=== PATIENT | male | born 1965 | race Caucasian/White ===

== ENCOUNTER 2017-02-14 10:03 | Emergency (ER) | payer OTHER ==
[~2017-02-14] VITALS: Ht 190.5 cm; Wt 130.0 kg
[~2017-02-14 10:03] MED LIST: HYDR10SO PO; LISI-360 PO; MEDR4PAK3 PO; METO25CR PO; ROPI1TAB72 PO; [UNRECOGNIZED DRUG - CODE] PO
--- NOTE | 2017-02-14 10:39 | PD ---
HPI Chief Complaint: Flank/Kidney Pain Time Seen by Provider: 10:39 Travel History International Travel<30 days: No Contact w/Intl Traveler<30days: No Traveled to known affect area: No History of Present Illness HPI 51-year-old male came to the emergency room with history of left flank pain that started 5 days ago. Patient says he has history of kidney stones and has had surgery for it last . He has been nauseous and vomiting. He went to see his urologist but patient says he does not trust him and hence came to this emergency room. Patient had an ultrasound done 2 weeks ago when he was told his kidneys had some stones. He feels dehydrated he said. Patient is tachycardic in the ER. [facility] Past Medical History Narrative Medical List of his past medical, surgical, social and family history is reviewed from the nursing note. Arthritis: Yes Blood Disorders: No Anxiety: No Depression: Yes Heart Rhythm Problems: Yes (FAST PULSE) Cancer: No Cardiac Catheterization: Yes Cardiovascular Problems: Yes (HTN) High Cholesterol: No Chest Pain: Yes Congestive Heart Failure: No Diabetes: No Diminished Hearing: Yes (LEFT EAR DEAFNESS) Endocrine: No Gastrointestinal Disorders: No Genitourinary: No Headaches: Yes Hypertension: Yes Immune Disorder: No Musculoskeletal: Yes (CHRONIC BACK PAIN) Neurologic: Yes (head injury at age 20) Psychiatric: No Reproductive: No Respiratory: No Immunizations Current: Yes Myocardial Infarction: No ?: Not Past Surgical History Abdominal Surgery: Yes (APPY) Appendectomy: Yes Cholecystectomy: Yes Coronary Artery Bypass Graft: No Other Surgery: Yes Social History Alcohol Use: No Tobacco Use: No Substance Use: No Allergies-Medications (Allergen,Severity, Reaction): Coded Allergies: No Known Allergies (Verified , 02/14/17) Comments No known drug allergies. Reported Meds & Prescriptions Reported Meds & Active Scripts Active Zofran Odt (Ondansetron Odt) 4 Mg Tab 4 Mg SL Q6HR PRN Macrobid (Nitrofurantoin Monoh/Nitrofur Macro) 100 Mg Cap 100 Mg PO BID 10 Days Reported Pyridium (Phenazopyridine HCl) 100 Mg Tab 100 Mg PO Q8H PRN Requip (Ropinirole) 1 Mg Tab 1 Mg PO HS Hydrocodone-Acetaminophen 10-325 mg Tab 1 Tab PO Q4H PRN Metoprolol Succinate ER 24 HR (Metoprolol Succinate) 25 Mg Tab 25 Mg PO HS Lisinopril 10 Mg Tab 10 Mg PO BID Narrative Medication List of his home medications reviewed from the nursing note. Review of Systems Except as stated in HPI: all other systems reviewed are Neg Physical Exam Narrative GENERAL: Awake, alert, obese, moderate distress SKIN: Focused skin assessment warm/dry. HEAD: Atraumatic. Normocephalic. EYES: Pupils equal and round. No scleral icterus. No injection or drainage. ENT: No nasal bleeding or discharge. Mucous membranes NECK: Trachea midline. No JVD. CARDIOVASCULAR: Regular rate and rhythm. No murmur appreciated. RESPIRATORY: No accessory muscle use. Clear to auscultation. Breath sounds equal bilaterally. GASTROINTESTINAL: Abdomen soft, non-tender, nondistended. Hepatic and splenic margins not palpable. MUSCULOSKELETAL: No obvious deformities. No clubbing. No cyanosis. No edema. Left CVA tenderness NEUROLOGICAL: Awake and alert. No obvious cranial nerve deficits. Motor grossly within normal limits. Normal speech. PSYCHIATRIC: Appropriate mood and affect; insight and judgment normal. Data Data Last Documented VS Vital Signs Date Time Temp Pulse Resp B/P Pulse Ox O2 Delivery O2 Flow Rate FiO2 02/14/17 13:54 82 16 122/81 98 Room Air 02/14/17 10:44 98.3 Orders Complete Blood Count With Diff (02/14/17 10:44) Basic Metabolic Panel (Bmp) (02/14/17 10:44) Urinalysis - C+S If Indicated (02/14/17 10:44) Ct Abd/Pel W/O Iv Contrast (02/14/17 10:44) Ecg Monitoring (02/14/17 10:44) Iv Access Insert/Monitor (02/14/17 10:44) Morphine Inj (Morphine Inj) (02/14/17 10:45) Sodium Chloride 0.9% Flush (Ns Flush) (02/14/17 10:45) Sodium Chlor 0.9% 1000 Ml Inj (Ns 1000 M (02/14/17 10:44) Hydromorphone Pf Inj (Dilaudid Pf Inj) (02/14/17 10:45) Ondansetron Inj (Zofran Inj) (02/14/17 11:30) Urine Culture (02/14/17 11:20) Ceftriaxone Inj (Rocephin Inj) (02/14/17 12:00) Nitrofurantoin Monohyd Macrocr (Macrobid (02/14/17 12:00) Blood Culture (02/14/17 11:57) Sodium Chlor 0.9% 1000 Ml Inj (Ns 1000 M (02/14/17 12:00) Labs Laboratory Tests Test 02/14/17 11:20 White Blood Count 12.1 TH/MM3 Red Blood Count 5.72 MIL/MM3 Hemoglobin 16.4 GM/DL Hematocrit 49.0 % Mean Corpuscular Volume 85.7 FL Mean Corpuscular Hemoglobin 28.6 PG Mean Corpuscular Hemoglobin 33.4 % Concent Red Cell Distribution Width 14.2 % Platelet Count 310 TH/MM3 Mean Platelet Volume 8.1 FL Neutrophils (%) (Auto) 64.4 % Lymphocytes (%) (Auto) 24.5 % Monocytes (%) (Auto) 8.7 % Eosinophils (%) (Auto) 2.0 % Basophils (%) (Auto) 0.4 % Neutrophils # (Auto) 7.8 TH/MM3 Lymphocytes # (Auto) 3.0 TH/MM3 Monocytes # (Auto) 1.1 TH/MM3 Eosinophils # (Auto) 0.2 TH/MM3 Basophils # (Auto) 0.0 TH/MM3 CBC Comment DIFF FINAL Differential Comment Urine Color ORANGE Urine Turbidity CLEAR Urine pH 5.5 Urine Specific [place] 1.046 Urine Protein 30 mg/dL Urine Glucose (UA) NEG mg/dL Urine Ketones NEG mg/dL Urine Occult Blood NEG Urine Nitrite POS Urine Bilirubin NEG Urine Urobilinogen 4.0 MG/DL Urine Leukocyte Esterase NEG Urine RBC 1 /hpf Urine WBC 1 /hpf Urine Squamous Epithelial 1 /hpf Cells Urine Bacteria RARE /hpf Urine Mucus MANY /lpf Microscopic Urinalysis Comment CULTURE INDICATED Sodium Level 136 MEQ/L Potassium Level 4.0 MEQ/L Chloride Level 102 MEQ/L Carbon Dioxide Level 24.9 MEQ/L Anion Gap 9 MEQ/L Blood Urea Nitrogen 19 MG/DL Creatinine 1.08 MG/DL Estimat Glomerular Filtration 73 ML/MIN Rate Random Glucose 107 MG/DL Calcium Level 10.3 MG/DL [facility] Medical Decision Making Medical Screen Exam Complete: Yes Emergency Medical Condition: Yes Medical Record Reviewed: Yes Differential Diagnosis Ureteral colic, pyelonephritis, chronic back pain Narrative Course 10:52 AM awaiting for the blood test results and CAT scan to be done and resulted. He was medicated for pain and IV fluid bolus. 11:53 AM blood test result is back and the slight leukocytosis. However CAT scan report came back and there is no ureteral stone or any other etiology that the radiologist can see and pain. Awaiting for the chemistry and UA to be resulted. 12 PM UA and chemistry is back. UA was relatively acceptable to be within normal limits. However shows UTI. I've ordered 1 g of IV Rocephin and by mouth Macrobid. Patient however will be discharged after that one by mouth Macrobid prescription. Procedures EKG Prior to Arrival: No Diagnosis Primary Impression: Pyelonephritis Referrals: Primary Care Physician 3 days Additional Instructions: Please return to the ER if the condition worsens or any other new concerns. Otherwise take the antibiotic as per the prescription direction. Follow up with your primary care in couple days. Med/Other Pt SpecificInfo: Prescription(s) given Scripts Ondansetron Odt (Zofran Odt)4 Mg Tab4 Mg SL Q6HR PRN (Nausea/Vomiting) #12 TAB Ref 0 Prov:Jg Marc MD 02/14/17 Nitrofurantoin Monohydrate Macrocrystals (Macrobid)100 Mg [id number] Mg PO BID 10 Days Ref 0 Prov:Jg Marc MD 02/14/17 Disposition: 01 DISCHARGE HOME Condition: Stable Jg Marc MD February 14, 2017 10:39
[2017-02-14 10:44] VITALS: BP 110/82; PULSE 116; RESP 16; TEMP 98.3; O2SAT 98
[2017-02-14] MEDS ORDERED: SODIUM CHLOR 0.9% 1000 ML INJ 1,000 ML IV ONE ×2 (10:44→12:00)
[2017-02-14] MEDS ORDERED: HYDROmorphone HCL PF 1 MG/ML VIAL IVS ONE (10:45)
[2017-02-14] MEDS ORDERED: MORPHINE SULFATE 4 MG/ML INJ IV ONE (10:45)
[2017-02-14] MEDS ORDERED: SODIUM CHLORIDE 0.9% FLUSH 10 ML FLUSH IVF PRN (10:45)
[2017-02-14] MEDS ORDERED: LISI10TA3 PO (11:16)
[2017-02-14] MEDS ORDERED: METO25TA6 PO (11:16)
[2017-02-14] MEDS ORDERED: ROPI1TAB72 PO (11:16)
[2017-02-14] MEDS ORDERED: PHEN0.4T PO (11:16)
[2017-02-14] MEDS ORDERED: HYDR-3583 PO (11:16)
[2017-02-14] MEDS ORDERED: ONDANSETRON HCL 4 MG/2 ML VIAL IV PUSH ONE (11:30)
[2017-02-14 11:35] LABS: AUTOMATED NEUTROPHIL # 7.8 TH/MM3 (1.8-7.7); BASOPHIL % 0.4 % (0.0-2.0); EOSINOPHIL # 0.2 TH/MM3 (0-0.4); HEMO FLAGS DIFF FINAL; LYMPH % 24.5 % (9.0-44.0); MEAN CELL VOLUME 85.7 FL (80.0-100.0); MEAN CORPUSCULAR HEMOGLOBIN 28.6 PG (27.0-34.0); MEAN CORPUSCULAR HGB CONC 33.4 % (32.0-36.0); MONO % 8.7 % (0.0-8.0); NEUT % 64.4 % (16.0-70.0); PLATELET COUNT 310 TH/MM3 (150-450); RED BLOOD COUNT 5.72 MIL/MM3 (4.50-5.90); RED CELL DISTRIBUTION WIDTH 14.2 % (11.6-17.2); WHITE BLOOD COUNT 12.1 TH/MM3 (4.0-11.0)
--- NOTE | 2017-02-14 11:52 | RADRPT ---
EXAM DATE/TIME: 02/14/2017 11:35 [place] COMPARISON: No previous studies available for comparison. INDICATIONS : Left flank pain that started 5 days ago. Evaluate for renal stone. ORAL CONTRAST: No oral contrast ingested. RADIATION DOSE: 8.56 CTDIvol (mGy) MEDICAL HISTORY : Cardiovascular disease. Hypertension. SURGICAL HISTORY : Cholecystectomy. Appendectomy ENCOUNTER: Initial ACUITY: 4 - 6 days PAIN SCALE: 6/10 LOCATION: Left flank TECHNIQUE: Volumetric scanning of the abdomen and pelvis was performed. Using automated exposure control and ad justment of the mA and/or kV according to patient size, radiation dose was kept as low as reasonably achievable to obtain optimal diagnostic quality images. FINDINGS: The lung base is are clear. There is no pericardial effusion. There is moderate fatty replacement to the liver. Granulomas are present in the spleen. The pancreas and adrenal glands are unremarkable. Right kidney: There is no evidence renal calculi or obstruction. Left kidney: There is very mild prominence to the left ureter without calcification. Pelvic contents are unremarkable. There is no ascites or adenopathy. There are no diverticulitis Review of bone windows reveals only degenerative changes. CONCLUSION: 1. Negative for renal stone or obstruction. 2. I do not see an etiology for patient's flank pain. 3. Moderate fatty replacement of the liver. Rakesh Hays MD FACR on February 14, 2017 at 11:47 Board Certified Radiologist. This report was verified electronically.
[2017-02-14 11:53] LABS: BACTERIA, URINE RARE /hpf; BLOOD, URINE NEG (NEG); COMMENT (UR) CULTURE INDICATED; CULTURE IF INDICATED CULTURE INDICATED; GLUCOSE,URINE NEG (NEG); KETONE, URINE NEG (NEG); MUCUS URINE MANY /lpf (OCC); NITRITE,URINE POS (NEG); PH, URINE 5.5 (5.0-8.5); SQUAMOUS EPITHELIAL CELL URINE 1 /hpf (0-5); URINE COLOR ORANGE (YELLW/STRAW)
[2017-02-14 11:57] LABS: BICARBONATE 24.9 MEQ/L (21.0-32.0)
[2017-02-14] MEDS ORDERED: cefTRIAXone INJ 1,000 MG in SODIUM CHLORIDE 0.9% INJ 100 ML IV ONE (12:00)
[2017-02-14] MEDS ORDERED: NITROFURANTOIN MONOHYD MACROCR 100 MG CAP PO ONE (12:00)
[2017-02-14] MEDS ORDERED: ZOFR4TAB3 SL (12:03)
[2017-02-14] MEDS ORDERED: MACR100C2 PO (12:03)
[2017-02-14 13:54] VITALS: BP 122/81; PULSE 82; RESP 16; O2SAT 98
== END 2017-02-14 13:55 | disposition home or self-care (01) ==
LOC: NEPD 10:03
DX: N12 Tubulo-interstitial nephritis, not specified as acute or chronic (principal); B96.89 Other specified bacterial agents as the cause of diseases classified elsewhere; I10 Essential (primary) hypertension; H91.92 Unspecified hearing loss, left ear
CPT/HCPCS: 74176; 80048; 81001; 85025; 87040; 87086; 96361; 96365; 96375; 99284; J0696; J1170; J2270; J2405; J7030

== ENCOUNTER 2017-04-09 10:10 | Emergency (ER) | payer OTHER ==
[~2017-04-09] VITALS: Ht 190.5 cm; Wt 128.0 kg
[~2017-04-09 10:10] MED LIST changes: +HYDR-3583 PO; -HYDR10SO PO; -LISI-360 PO; +LISI10TA3 PO; +MACR100C2 PO; -MEDR4PAK3 PO; -METO25CR PO; +METO25TA6 PO; +PHEN0.4T PO; +ZOFR4TAB3 SL; -[UNRECOGNIZED DRUG - CODE] PO
[2017-04-09 10:12] VITALS: BP 127/88; PULSE 100; RESP 24; TEMP 98; O2SAT 92
[2017-04-09 10:44] VITALS: BP 132/95; PULSE 104; RESP 17; O2SAT 94
[2017-04-09] MEDS ORDERED: AMIT150T PO (10:49)
[2017-04-09] MEDS ORDERED: HYDR-3288 PO (10:49)
[2017-04-09] MEDS ORDERED: MORPHINE SULFATE 8 MG/ML INJ IV PUSH ONE (11:00)
[2017-04-09] MEDS ORDERED: KETOROLAC TROMETHAMINE 30 MG/ML (IVP) VIAL IVP ONE (11:00)
[2017-04-09] MEDS ORDERED: SODIUM CHLORIDE 0.9% FLUSH 10 ML FLUSH IV FLUSH PRN (11:00)
[2017-04-09] MEDS ORDERED: ONDANSETRON HCL 4 MG/2 ML VIAL IVP ONE (11:00)
[2017-04-09 11:38] LABS: BLOOD, URINE TRACE (NEG); GLUCOSE,URINE NEG (NEG); GRANULAR CAST, URINE 1 /lpf; HYALINE CAST, URINE 5 /lpf (RARE); KETONE, URINE NEG (NEG); MUCUS URINE FEW /lpf (OCC); NITRITE,URINE NEG (NEG); PH, URINE 5.5 (5.0-8.5); URINE COLOR YELLOW (YELLW/STRAW)
[2017-04-09 11:40] LABS: AUTOMATED NEUTROPHIL # 5.9 TH/MM3 (1.8-7.7); BASOPHIL # 0.1 TH/MM3 (0-0.2); BASOPHIL % 0.7 % (0.0-2.0); EOSINOPHIL # 0.2 TH/MM3 (0-0.4); EOSINOPHIL % 2.3 % (0.0-4.0); HEMATOCRIT 50.8 % (39.0-51.0); HEMO FLAGS DIFF FINAL; LYMPH % 27.5 % (9.0-44.0); LYMPHOCYTE # 2.7 TH/MM3 (1.0-4.8); MEAN CELL VOLUME 85.9 FL (80.0-100.0); MEAN CORPUSCULAR HEMOGLOBIN 29.5 PG (27.0-34.0); MEAN CORPUSCULAR HGB CONC 34.3 % (32.0-36.0); MONO % 7.9 % (0.0-8.0); NEUT % 61.6 % (16.0-70.0); PLATELET COUNT 353 TH/MM3 (150-450); RED BLOOD COUNT 5.91 MIL/MM3 (4.50-5.90); RED CELL DISTRIBUTION WIDTH 14.1 % (11.6-17.2); WHITE BLOOD COUNT 9.6 TH/MM3 (4.0-11.0)
[2017-04-09 11:41] LABS: COMMENT (UR) CULT NOT INDICATED; CULTURE IF INDICATED CULT NOT INDICATED
[2017-04-09 11:56] VITALS: BP 121/85; PULSE 105; RESP 16; O2SAT 96
[2017-04-09 12:42] LABS: BICARBONATE 26.9 MEQ/L (21.0-32.0); POTASSIUM 4.3 MEQ/L (3.5-5.1)
--- NOTE | 2017-04-09 12:47 | PD ---
HPI Chief Complaint: Flank/Kidney Pain Time Seen by Provider: 10:52 Travel History International Travel<30 days: No Contact w/Intl Traveler<30days: No Traveled to known affect area: No History of Present Illness HPI Patient's 51 years old and arrives with flank pain primarily on the left side. He's had fever and chills for the last few days. Diaphoresis reported. He reports a sono was performed recently revealing stones in the left kidney. He has a long history of nephroureterolithiasis. He followed with Dr. Poole of urology until a disagreement of late apparently and he now follows with Dr. Yuan. Nausea reported. PFSH Past Medical History Arthritis: Yes Asthma: Yes Blood Disorders: No Anxiety: No Depression: Yes Heart Rhythm Problems: Yes (tachy) Cancer: No Cardiac Catheterization: Yes Cardiovascular Problems: Yes (HTN ) High Cholesterol: No Chest Pain: Yes Congestive Heart Failure: No Diabetes: No Diminished Hearing: Yes (LEFT EAR DEAFNESS) Endocrine: No Gastrointestinal Disorders: No Genitourinary: No Headaches: Yes Hypertension: Yes Immune Disorder: No Musculoskeletal: Yes (CHRONIC BACK PAIN) Neurologic: Yes (head injury at age 20 L FACIAL paralysis with cardiac arrest x 2) Psychiatric: No Reproductive: No Respiratory: Yes (ASTHMA ) Immunizations Current: Yes Myocardial Infarction: No Past Surgical History Abdominal Surgery: Yes (APPY) Appendectomy: Yes Cholecystectomy: Yes Coronary Artery Bypass Graft: No Other Surgery: Yes Family History Family Myocardial Infarction: Yes (FATHER, MOTHER) Social History Alcohol Use: No Tobacco Use: No Substance Use: No Allergies-Medications (Allergen,Severity, Reaction): Coded Allergies: No Known Allergies (Verified , 04/09/17) Reported Meds & Prescriptions Reported Meds & Active Scripts Active Percocet (Oxycodone-Acetaminophen) 7.5-325 mg Tab 1 Tab PO BID PRN Reported Amitriptyline (Amitriptyline HCl) 150 Mg Tab 150 Mg PO HS [place] (Hydrocodone-Acetaminophen) 7.5-325 mg Tab 1 Tab PO Q6HR PRN Requip (Ropinirole) 1 Mg Tab 1 Mg PO HS Metoprolol Succinate ER 24 HR (Metoprolol Succinate) 25 Mg Tab 25 Mg PO HS Lisinopril 10 Mg Tab 10 Mg PO BID Review of Systems Except as stated in HPI: all other systems reviewed are Neg Physical Exam Narrative GENERAL: 51-year-old male well-nourished well-developed no acute distress SKIN: Focused skin assessment warm/dry. HEAD: Atraumatic. Normocephalic. EYES: Pupils equal and round. No scleral icterus. No injection or drainage. ENT: No nasal bleeding or discharge. Mucous membranes pink and moist. NECK: Trachea midline. No JVD. CARDIOVASCULAR: Regular rate and rhythm. No murmur appreciated. RESPIRATORY: No accessory muscle use. Clear to auscultation. Breath sounds equal bilaterally. GASTROINTESTINAL: Soft. Minimal tenderness percussion left flank. MUSCULOSKELETAL: No obvious deformities. No clubbing. No cyanosis. No edema. NEUROLOGICAL: Awake and alert. No obvious cranial nerve deficits. Motor grossly within normal limits. Normal speech. PSYCHIATRIC: Appropriate mood and affect; insight and judgment normal. Data Data Last Documented VS Vital Signs Date Time Temp Pulse Resp B/P Pulse Ox O2 Delivery O2 Flow Rate FiO2 04/09/17 11:56 105 16 121/85 96 Room Air 04/09/17 10:12 98.0 Vital signs reviewed Orders Basic Metabolic Panel (Bmp) (04/09/17 10:52) Complete Blood Count With Diff (04/09/17 10:52) Urinalysis - C+S If Indicated (04/09/17 10:52) Iv Access Insert/Monitor (04/09/17 10:52) Ecg Monitoring (04/09/17 10:52) Oximetry (04/09/17 10:52) Ondansetron Inj (Zofran Inj) (04/09/17 11:00) Sodium Chloride 0.9% Flush (Ns Flush) (04/09/17 11:00) Ketorolac Inj (Toradol Inj) (04/09/17 11:00) Morphine Inj (Morphine Inj) (04/09/17 11:00) Labs Laboratory Tests Test 04/09/17 04/09/17 04/09/17 11:18 11:22 12:05 Urine Color YELLOW Urine Turbidity CLEAR Urine pH 5.5 Urine Specific [place] 1.033 Urine Protein TRACE mg/dL Urine Glucose (UA) NEG mg/dL Urine Ketones NEG mg/dL Urine Occult Blood TRACE Urine Nitrite NEG Urine Bilirubin NEG Urine Urobilinogen LESS THAN 2.0 MG/DL Urine Leukocyte Esterase NEG Urine RBC 1 /hpf Urine WBC 1 /hpf Urine Hyaline Casts 5 /lpf Urine Granular Casts 1 /lpf Urine Mucus FEW /lpf Microscopic Urinalysis Comment CULT NOT INDICATED White Blood Count 9.6 TH/MM3 Red Blood Count 5.91 MIL/MM3 Hemoglobin 17.4 GM/DL Hematocrit 50.8 % Mean Corpuscular Volume 85.9 FL Mean Corpuscular Hemoglobin 29.5 PG Mean Corpuscular Hemoglobin 34.3 % Concent Red Cell Distribution Width 14.1 % Platelet Count 353 TH/MM3 Mean Platelet Volume 8.3 FL Neutrophils (%) (Auto) 61.6 % Lymphocytes (%) (Auto) 27.5 % Monocytes (%) (Auto) 7.9 % Eosinophils (%) (Auto) 2.3 % Basophils (%) (Auto) 0.7 % Neutrophils # (Auto) 5.9 TH/MM3 Lymphocytes # (Auto) 2.7 TH/MM3 Monocytes # (Auto) 0.8 TH/MM3 Eosinophils # (Auto) 0.2 TH/MM3 Basophils # (Auto) 0.1 TH/MM3 CBC Comment DIFF FINAL Differential Comment Sodium Level 136 MEQ/L Potassium Level 4.3 MEQ/L Chloride Level 103 MEQ/L Carbon Dioxide Level 26.9 MEQ/L Anion Gap 6 MEQ/L Blood Urea Nitrogen 13 MG/DL Creatinine 0.91 MG/DL Estimat Glomerular Filtration 89 ML/MIN Rate Random Glucose 103 MG/DL Calcium Level 9.3 MG/DL [facility] Medical Decision Making Medical Screen Exam Complete: Yes Emergency Medical Condition: Yes Medical Record Reviewed: Yes Differential Diagnosis Constipation, Gastritis, Acute Cholecystitis, Biliary Colic, Pancreatitis, LEPE , Hepatitis, Bowel Obstruction, Cystitis, Mesenteric Ischemia, AAA, Appendicitis , Renal Stone/Hydronephrosis, GERD, perforated viscous Narrative Course CBC & BMP Diagram 04/09/17 11:22 04/09/17 12:05 Urinalysis: no UTI, 1 RBC Long conversation with patient regarding pain control and differential diagnosis. Pt has been drinking sweet tea in excess lately. He was encouraged to switch to water, a concept to which he was responded favorably. Follow up with Dr Yuan. Diagnosis Primary Impression: Hematuria Additional Impression: Flank pain Referrals: Julio Yuan MD 2 days Additional Instructions: You have a choice when it comes to health care, and we are glad that you chose [facility]. Hopefully, we have met your expectations on today's visit. You are welcome to return to [facility] at any time, as we are committed to meeting the health care needs of our community. DRINK WATER. DRINK UNSWEETENED TEA! Med/Other Pt SpecificInfo: Prescription(s) given Scripts Oxycodone-Acetaminophen (Percocet)7.5-325 mg Tab1 Tab PO BID PRN (PAIN SCALE 6 TO 10) #28 TAB Ref 0 Prov:Mohamud Cunningham MD 04/09/17 Disposition: 01 DISCHARGE HOME Condition: Mohamud Vega MD Apr 09, 2017 12:47 Oxycodone-Acetaminophen (Percocet)7.5-325 mg Tab1 Tab PO BID PRN (PAIN SCALE 6 TO 10) #28 TAB Ref 0 Prov:Mohamud Cunningham MD 04/09/17 Disposition: 01 DISCHARGE HOME Condition: Mohamud Vega MD Apr 09, 2017 12:47
[2017-04-09] MEDS ORDERED: PERC7.5T13 PO (13:14)
== END 2017-04-09 13:36 | disposition home or self-care (01) ==
LOC: NEPC 10:10
DX: R31.9 Hematuria, unspecified (principal); R10.9 Unspecified abdominal pain; R50.9 Fever, unspecified; R61 Generalized hyperhidrosis; R11.0 Nausea; I10 Essential (primary) hypertension; H91.92 Unspecified hearing loss, left ear; Z87.448 Personal history of other diseases of urinary system; Z87.39 Personal history of other diseases of the musculoskeletal system and connective tissue; Z87.09 Personal history of other diseases of the respiratory system; Z86.79 Personal history of other diseases of the circulatory system; Z86.69 Personal history of other diseases of the nervous system and sense organs
CPT/HCPCS: 80048; 81001; 85025; 96374; 96375; 99284; J1885; J2270; J2405

== ENCOUNTER 2017-07-27 16:03 | Inpatient (IN) | payer OTHER ==
[~2017-07-27] VITALS: Ht 190.5 cm; Wt 122.0 kg
[2017-07-27 03:54] VITALS: BP 141/86; PULSE 99; RESP 18; TEMP 98.3; O2SAT 93
[~2017-07-27 16:03] MED LIST changes: +AMIT150T PO; +HYDR-3288 PO; -HYDR-3583 PO; -MACR100C2 PO; +PERC7.5T13 PO; -PHEN0.4T PO; -ZOFR4TAB3 SL
[2017-07-27 16:04] VITALS: BP 140/105; PULSE 98; RESP 20; TEMP 98.4; O2SAT 97
[2017-07-27 16:46] LABS: AUTOMATED NEUTROPHIL # 5.4 TH/MM3 (1.8-7.7); BASOPHIL % 0.4 % (0.0-2.0); EOSINOPHIL # 0.5 TH/MM3 (0-0.4); EOSINOPHIL % 4.7 % (0.0-4.0); HEMATOCRIT 45.4 % (39.0-51.0); HEMO FLAGS DIFF FINAL; LYMPH % 34.9 % (9.0-44.0); LYMPHOCYTE # 3.6 TH/MM3 (1.0-4.8); MEAN CELL VOLUME 87.6 FL (80.0-100.0); MEAN CORPUSCULAR HEMOGLOBIN 30.4 PG (27.0-34.0); MEAN CORPUSCULAR HGB CONC 34.7 % (32.0-36.0); MONO % 7.9 % (0.0-8.0); NEUT % 52.1 % (16.0-70.0); PLATELET COUNT 355 TH/MM3 (150-450); RED BLOOD COUNT 5.18 MIL/MM3 (4.50-5.90); WHITE BLOOD COUNT 10.3 TH/MM3 (4.0-11.0)
[2017-07-27 17:05] LABS: ANION GAP 7 MEQ/L (5-15); BLOOD UREA NITROGEN 16 MG/DL (7-18); CHLORIDE 100 MEQ/L (98-107); GLOMERULAR FILTRATION RATE 84 ML/MIN (>89); POTASSIUM 3.8 MEQ/L (3.5-5.1); SODIUM (NA) 135 MEQ/L (136-145)
[2017-07-27 17:07] LABS: CREATINE KINASE 76 U/L (39-308)
[2017-07-27] MEDS ORDERED: SODIUM CHLOR 0.9% 1000 ML INJ 1,000 ML IV ONE (17:30)
[2017-07-27] MEDS ORDERED: ASPIRIN 81 MG CHEW TAB PO ONE (17:30)
[2017-07-27] MEDS: NITROGLYCERIN 0.4 MG SL 25 TABS/BTL SL SCH ×3 (17:40→17:50)
--- NOTE | 2017-07-27 17:41 | PD ---
HPI Chief Complaint: Chest Pain Time Seen by Provider: 17:07 Travel History International Travel<30 days: No Contact w/Intl Traveler<30days: No Traveled to known affect area: No History of Present Illness HPI Patient is a 52-year-old male with history of hypertension who was sent to the emergency room by his primary care doctor for evaluation of chest pain. Patient reports that he began to have chest pain on Tuesday after he was moving things outside of his house. Feeling short of breath and diaphoretic with this chest pain. Patient reports that he felt near-syncope with his symptoms. Reports that symptoms resolved after a few hours, reports the symptoms returned the next day, he began to have chest pain at rest. Patient reports that nothing makes the chest pain better or worse, patient did follow-up with his primary care doctor yesterday who told him to go to the emergency room for evaluation. Reports that he waited until today to be seen in the emergency room as he has continuous chest pain. Patient reports that he did not have a loan interviewer mortgage, denies history of coronary artery disease or [place]. Denies history of cardiac stent in the past. Patient reports that his father had a heart attack at 55 PFSH Past Medical History Arthritis: Yes Asthma: Yes Blood Disorders: No Anxiety: No Depression: Yes Heart Rhythm Problems: Yes (tachy) Cancer: No Cardiac Catheterization: Yes Cardiovascular Problems: Yes (HTN) High Cholesterol: No Chest Pain: Yes Congestive Heart Failure: No Diabetes: No Diminished Hearing: Yes (LEFT EAR DEAFNESS) Endocrine: No Gastrointestinal Disorders: No Genitourinary: No Headaches: Yes Hypertension: Yes Immune Disorder: No Musculoskeletal: Yes (CHRONIC BACK PAIN) Neurologic: Yes (head injury at age 20 L FACIAL paralysis with cardiac arrest x 2) Psychiatric: No Reproductive: No Respiratory: Yes (ASTHMA ) Immunizations Current: Yes Myocardial Infarction: No Past Surgical History Abdominal Surgery: Yes (APPY) Appendectomy: Yes Cholecystectomy: Yes Coronary Artery Bypass Graft: No Other Surgery: Yes Social History Alcohol Use: No Tobacco Use: No Substance Use: No Allergies-Medications (Allergen,Severity, Reaction): Coded Allergies: No Known Allergies (Verified , 04/09/17) Reported Meds & Prescriptions Reported Meds & Active Scripts Active Percocet (Oxycodone-Acetaminophen) 7.5-325 mg Tab 1 Tab PO BID PRN Reported Amitriptyline (Amitriptyline HCl) 150 Mg Tab 150 Mg PO HS [place] (Hydrocodone-Acetaminophen) 7.5-325 mg Tab 1 Tab PO Q6HR PRN Requip (Ropinirole) 1 Mg Tab 1 Mg PO HS Metoprolol Succinate ER 24 HR (Metoprolol Succinate) 25 Mg Tab 25 Mg PO HS Lisinopril 10 Mg Tab 10 Mg PO BID Review of Systems General / Constitutional: No: Fever Eyes: No: Visual changes HENT: No: Headaches Cardiovascular: Positive: Chest Pain or Discomfort, No: Palpitations, Irregular Rhythm Respiratory: Positive: Shortness of Breath Gastrointestinal: No: Abdominal Pain Genitourinary: No: Dysuria Musculoskeletal: No: Pain Skin: No Rash Neurologic: No: Weakness Psychiatric: No: Depression Endocrine: No: Polydipsia Hematologic/Lymphatic: No: Easy Bruising Physical Exam Narrative GENERAL: Mild distress SKIN: Focused skin assessment warm/dry. HEAD: Atraumatic. Normocephalic. EYES: Pupils equal and round. No scleral icterus. No injection or drainage. ENT: No nasal bleeding or discharge. Mucous membranes pink and moist. NECK: Trachea midline. No JVD. CARDIOVASCULAR: Regular rate and rhythm. No murmur appreciated. RESPIRATORY: No accessory muscle use. Clear to auscultation. Breath sounds equal bilaterally. GASTROINTESTINAL: Abdomen soft, non-tender, nondistended. Hepatic and splenic margins not palpable. MUSCULOSKELETAL: No obvious deformities. No clubbing. No cyanosis. No edema. NEUROLOGICAL: Awake and alert. No obvious cranial nerve deficits. Motor grossly within normal limits. Normal speech. PSYCHIATRIC: Anxious on exam; insight and judgment normal. Data Data Last Documented VS Vital Signs Date Time Temp Pulse Resp B/P (MAP) Pulse Ox O2 Delivery O2 Flow Rate FiO2 07/27/17 17:50 120 16 103/61 (75) 97 Non-Rebreather 15.00 07/27/17 16:04 98.4 Orders Orders Electrocardiogram (07/27/17 16:21) Complete Blood Count With Diff (07/27/17 16:21) Basic Metabolic Panel (Bmp) (07/27/17 16:21) Ckmb (Isoenzyme) Profile (07/27/17 16:21) Troponin I (07/27/17 16:21) Iv Access Insert/Monitor (07/27/17 16:21) Ecg Monitoring (07/27/17 16:21) Oxygen Administration (07/27/17 16:21) Oximetry (07/27/17 16:21) Chest, Pa & Lat (07/27/17 16:21) Aspirin Chew (Aspirin Chew) (07/27/17 17:30) Nitroglycerin Sl (Nitrostat Sl) (07/27/17 17:30) Sodium Chlor 0.9% 1000 Ml Inj (Ns 1000 M (07/27/17 17:30) Vascular Access Team Consult/P PRN (07/27/17 17:53) Vascular Poc Ultrasound (07/27/17 ) Ct Pulmonary Angiogram (07/27/17 17:53) Labs Laboratory Tests Test 07/27/17 16:30 White Blood Count 10.3 TH/MM3 Red Blood Count 5.18 MIL/MM3 Hemoglobin 15.7 GM/DL Hematocrit 45.4 % Mean Corpuscular Volume 87.6 FL Mean Corpuscular Hemoglobin 30.4 PG Mean Corpuscular Hemoglobin Concent 34.7 % Red Cell Distribution Width 14.0 % Platelet Count 355 TH/MM3 Mean Platelet Volume 7.1 FL Neutrophils (%) (Auto) 52.1 % Lymphocytes (%) (Auto) 34.9 % Monocytes (%) (Auto) 7.9 % Eosinophils (%) (Auto) 4.7 % Basophils (%) (Auto) 0.4 % Neutrophils # (Auto) 5.4 TH/MM3 Lymphocytes # (Auto) 3.6 TH/MM3 Monocytes # (Auto) 0.8 TH/MM3 Eosinophils # (Auto) 0.5 TH/MM3 Basophils # (Auto) 0.0 TH/MM3 CBC Comment DIFF FINAL Differential Comment Blood Urea Nitrogen 16 MG/DL Creatinine 0.95 MG/DL Random Glucose 111 MG/DL Calcium Level 9.1 MG/DL Sodium Level 135 MEQ/L Potassium Level 3.8 MEQ/L Chloride Level 100 MEQ/L Carbon Dioxide Level 28.0 MEQ/L Anion Gap 7 MEQ/L Estimat Glomerular Filtration Rate 84 ML/MIN Total Creatine Kinase 76 U/L Troponin I LESS THAN 0.02 NG/ML MDM Medical Decision Making Medical Screen Exam Complete: Yes Emergency Medical Condition: Yes Medical Record Reviewed: Yes Interpretation(s) EKG at 1626: NSR at 99bpm, qt/qtc: 321/377, no acute st or t wave changes Differential Diagnosis Differential includes ACS, arrhythmia, electrolyte abnormality, pneumothorax Narrative Course Patient is a 52 year old male who presents to ER with complaints of intermittent chest pain which has been ongoing for the past 3 days. Patient was placed on a vehicle monitor technician upon arrival to the emergency room. EKG shows no acute ST-T wave changes. Lab work including cardiac enzymes ordered. Aspirin as well as sublingual nitroglycerin ordered. Plan to monitor patient. Vital Signs Date Time Temp Pulse Resp B/P (MAP) Pulse Ox O2 Delivery O2 Flow Rate FiO2 07/27/17 16:04 98.4 98 20 140/105 (117) 97 Room Air Laboratory Tests Test 07/27/17 16:30 White Blood Count 10.3 TH/MM3 (4.0-11.0) Red Blood Count 5.18 MIL/MM3 (4.50-5.90) Hemoglobin 15.7 GM/DL (13.0-17.0) Hematocrit 45.4 % (39.0-51.0) Mean Corpuscular Volume 87.6 FL (80.0-100.0) Mean Corpuscular Hemoglobin 30.4 PG (27.0-34.0) Mean Corpuscular Hemoglobin Concent 34.7 % (32.0-36.0) Red Cell Distribution Width 14.0 % (11.6-17.2) Platelet Count 355 TH/MM3 (150-450) Mean Platelet Volume 7.1 FL (7.0-11.0) Neutrophils (%) (Auto) 52.1 % (16.0-70.0) Lymphocytes (%) (Auto) 34.9 % (9.0-44.0) Monocytes (%) (Auto) 7.9 % (0.0-8.0) Eosinophils (%) (Auto) 4.7 % (0.0-4.0) Basophils (%) (Auto) 0.4 % (0.0-2.0) Neutrophils # (Auto) 5.4 TH/MM3 (1.8-7.7) Lymphocytes # (Auto) 3.6 TH/MM3 (1.0-4.8) Monocytes # (Auto) 0.8 TH/MM3 (0-0.9) Eosinophils # (Auto) 0.5 TH/MM3 (0-0.4) Basophils # (Auto) 0.0 TH/MM3 (0-0.2) CBC Comment DIFF FINAL Differential Comment Blood Urea Nitrogen 16 MG/DL (7-18) Creatinine 0.95 MG/DL (0.60-1.30) Random Glucose 111 MG/DL (74-106) Calcium Level 9.1 MG/DL (8.5-10.1) Sodium Level 135 MEQ/L (136-145) Potassium Level 3.8 MEQ/L (3.5-5.1) Chloride Level 100 MEQ/L (98-107) Carbon Dioxide Level 28.0 MEQ/L (21.0-32.0) Anion Gap 7 MEQ/L (5-15) Estimat Glomerular Filtration Rate 84 ML/MIN (>89) Total Creatine Kinase 76 U/L (39-308) Troponin I LESS THAN 0.02 NG/ML Last Impressions Chest X-Ray 07/27/17 1621 Signed Impressions: Service Date/Time: Thursday, July 27, 2017 16:51 - CONCLUSION: No acute disease. Raymundo Toledo Jr., MD Patient now relief of symptoms after 2 sublingual nitroglycerin. Patient his hypoxic with a pulse ox of 94% on 2 L, is tachycardic with heart rate in the 120s, patient is not complaining of shortness of breath. CT angiogram the chest ordered to rule out PE Diagnosis Primary Impression: chest pain Alicia Wong DO Jul 27, 2017 17:41
--- NOTE | 2017-07-27 17:43 | RADRPT ---
EXAM DATE/TIME: 07/27/2017 16:51 [facility] COMPARISON: CHEST PA & LAT, April 01, 2014, 14:49. INDICATIONS : Chest pain and short of breath for 3 days. MEDICAL HISTORY : Hypertension. SURGICAL HISTORY : None. ENCOUNTER: Initial ACUITY: 3 days PAIN SCORE: 4/10 LOCATION: Bilateral chest FINDINGS: PA and lateral views of the chest demonstrate the lungs to be symmetrically aerated without evidence of mass, infiltrate or effusion. The cardiomediastinal contours are unremarkable. Osseous structure s are intact. CONCLUSION: No acute disease. Raymundo Toledo Jr., MD on July 27, 2017 at 17:41 Board Certified Radiologist. This report was verified electronically.
[2017-07-27 17:50] VITALS: BP 103/61; PULSE 120; PULSE 121; RESP 16; O2SAT 97
[2017-07-27 19:06] VITALS: BP 145/83; PULSE 98; RESP 18; O2SAT 97
[2017-07-27] MEDS ORDERED: IOHEXOL 350 MG/ML 10 ML VIAL (for RAD DIAG) IVCONTRAST ONE (19:25)
--- NOTE | 2017-07-27 19:33 | RADRPT ---
EXAM DATE/TIME: 07/27/2017 19:21 [facility] COMPARISON: CT THORAX W CONTRAST, October 06, 2013, 19:54 report only. CHEST PA & LAT, July 27, 2017, 16:51 INDICATIONS : Shortness of breath and chest pain. Evaluate for emboli. IV CONTRAST: 80 cc Omnipaque 350 (iohexol) IV RADIATION DOSE: 23.38 CTDIvol (mGy) MEDICAL HISTORY : Cardiovascular disease. Hypertension. SURGICAL HISTORY : None. ENCOUNTER: Initial ACUITY: 1 day PAIN SCALE: 7/10 LOCATION: chest TECHNIQUE: Volumetric scanning of the chest was performed using a pulmonary embolism protocol MIP images were re constructed. Using automated exposure control and adjustment of the mA and/or kV according to patien t size, radiation dose was kept as low as reasonably achievable to obtain optimal diagnostic quality images. DICOM format image data is available electronically for review and comparison. Follow-up recommendations for detected pulmonary nodules are based at a minimum on nodule size and pa tient risk factors according to Fleischner Society Guidelines. FINDINGS: PULMONARY ARTERIES: No filling defects are seen in the pulmonary arteries through the segmental level. LUNGS: There is no consolidation or pneumothorax . No concerning pulmonary nodule is visualized. PLEURAE: There is no pleural thickening or pleural effusion. MEDIASTINUM: There is good visualization of the great vessels of the middle mediastinum. No evidence of mediastin al or hilar adenopathy/mass. MUSCULOSKELETAL: Within normal limits for patient age. MISCELLANEOUS: The visualized upper abdominal organs demonstrate no acute abnormality. CONCLUSION: Normal examination. No evidence of pulmonary embolism. No acute cardiopulmonary disease. Caden Rojas MD on July 27, 2017 at 19:28 Board Certified Radiologist. This report was verified electronically.
--- NOTE | 2017-07-27 19:37 | PD ---
Physical Exam Date Seen by Provider: Jul 27, 2017 Time Seen by Provider: 19:37 Narrative Accepted in transfer of care from Dr. Wong GENERAL: Well-developed well-nourished male in no acute distress no respiratory distress room air O2 saturation 95% SKIN: Warm and dry. HEAD: Normocephalic. EYES: No scleral icterus. No injection or drainage. NECK: Supple, trachea midline. No JVD or lymphadenopathy. CARDIOVASCULAR: Regular rate and rhythm without murmurs, gallops, or rubs. RESPIRATORY: Breath sounds equal bilaterally. No accessory muscle use. GASTROINTESTINAL: Abdomen soft, non-tender, nondistended. MUSCULOSKELETAL: No cyanosis, or edema. BACK: Nontender without obvious deformity. No CVA tenderness. Data Data Last Documented VS Vital Signs Date Time Temp Pulse Resp B/P (MAP) Pulse Ox O2 Delivery O2 Flow Rate FiO2 07/27/17 19:59 97 18 134/80 (98) 97 Room Air 07/27/17 19:06 2.00 07/27/17 16:04 98.4 Orders Orders Electrocardiogram (07/27/17 16:21) Complete Blood Count With Diff (07/27/17 16:21) Basic Metabolic Panel (Bmp) (07/27/17 16:21) Ckmb (Isoenzyme) Profile (07/27/17 16:21) Troponin I (07/27/17 16:21) Iv Access Insert/Monitor (07/27/17 16:21) Ecg Monitoring (07/27/17 16:21) Oxygen Administration (07/27/17 16:21) Oximetry (07/27/17 16:21) Chest, Pa & Lat (07/27/17 16:21) Aspirin Chew (Aspirin Chew) (07/27/17 17:30) Nitroglycerin Sl (Nitrostat Sl) (07/27/17 17:30) Sodium Chlor 0.9% 1000 Ml Inj (Ns 1000 M (07/27/17 17:30) Vascular Access Team Consult/P PRN (07/27/17 17:53) Vascular Poc Ultrasound (07/27/17 ) Ct Pulmonary Angiogram (07/27/17 17:53) Iohexol 350 Inj (Omnipaque 350 Inj) (07/27/17 19:25) Nitroglycerin Sl (Nitrostat Sl) (07/27/17 19:54) Ketorolac Inj (Toradol Inj) (07/27/17 20:15) Labs Laboratory Tests Test 07/27/17 16:30 White Blood Count 10.3 TH/MM3 Red Blood Count 5.18 MIL/MM3 Hemoglobin 15.7 GM/DL Hematocrit 45.4 % Mean Corpuscular Volume 87.6 FL Mean Corpuscular Hemoglobin 30.4 PG Mean Corpuscular Hemoglobin Concent 34.7 % Red Cell Distribution Width 14.0 % Platelet Count 355 TH/MM3 Mean Platelet Volume 7.1 FL Neutrophils (%) (Auto) 52.1 % Lymphocytes (%) (Auto) 34.9 % Monocytes (%) (Auto) 7.9 % Eosinophils (%) (Auto) 4.7 % Basophils (%) (Auto) 0.4 % Neutrophils # (Auto) 5.4 TH/MM3 Lymphocytes # (Auto) 3.6 TH/MM3 Monocytes # (Auto) 0.8 TH/MM3 Eosinophils # (Auto) 0.5 TH/MM3 Basophils # (Auto) 0.0 TH/MM3 CBC Comment DIFF FINAL Differential Comment Blood Urea Nitrogen 16 MG/DL Creatinine 0.95 MG/DL Random Glucose 111 MG/DL Calcium Level 9.1 MG/DL Sodium Level 135 MEQ/L Potassium Level 3.8 MEQ/L Chloride Level 100 MEQ/L Carbon Dioxide Level 28.0 MEQ/L Anion Gap 7 MEQ/L Estimat Glomerular Filtration Rate 84 ML/MIN Total Creatine Kinase 76 U/L Troponin I LESS THAN 0.02 NG/ML [facility] Medical Record Reviewed: Yes Supervised Visit with SANG: No Interpretation(s) EKG normal sinus rhythm no ST elevation or injury pattern change noted Last Impressions CT Angiography 07/27/17 3043 Signed Impressions: Service Date/Time: Thursday, July 27, 2017 19:21 - CONCLUSION: Normal examination. No evidence of pulmonary embolism. No acute cardiopulmonary disease. Caden Rojas MD Chest X-Ray 07/27/17 1621 Signed Impressions: Service Date/Time: Thursday, July 27, 2017 16:51 - CONCLUSION: No acute disease. Raymundo Toledo Jr., MD CBC & BMP Diagram 07/27/17 16:30 Calcium Level 9.1 Vital Signs Date Time Temp Pulse Resp B/P (MAP) Pulse Ox O2 Delivery O2 Flow Rate FiO2 07/27/17 19:59 97 18 134/80 (98) 97 Room Air 07/27/17 19:06 98 18 145/83 (103) 97 Nasal Cannula 2.00 07/27/17 17:50 120 16 103/61 (75) 97 Non-Rebreather 15.00 07/27/17 17:50 121 16 103/61 (75) 97 Non-Rebreather 15.00 07/27/17 17:50 122 16 94 Nasal Cannula 3.00 07/27/17 17:50 96 Non-Rebreather 15.00 07/27/17 16:04 98.4 98 20 140/105 (117) 97 Room Air Troponin I: Less than 0.02, not elevated Differential Diagnosis Accepted in transfer of care from Dr. Wong; please refer to her dictation Narrative Course Accepted in transfer of care from Dr. Wong Physician Communication Physician Communication all placed to [facility] Diagnosis Primary Impression: chest pain Estephania Rahman MD Jul 27, 2017 19:37
[2017-07-27] MEDS ORDERED: NITROGLYCERIN 0.4 MG SL 25 TABS/BTL SL ONE (19:54)
[2017-07-27 19:59] VITALS: BP 134/80; PULSE 97; RESP 18; O2SAT 94; O2SAT 97
[2017-07-27] MEDS ORDERED: METO25TA3 PO (20:03)
[2017-07-27] MEDS ORDERED: KETOROLAC TROMETHAMINE 30 MG/ML (IVP) VIAL IV PUSH ONE (20:15)
[2017-07-27] MEDS ORDERED: SODIUM CHLORIDE 0.9% FLUSH 10 ML FLUSH IV FLUSH PRN (21:15)
[2017-07-27] MEDS ORDERED: NALOXONE HCL 0.4 MG/ML AMP IV PUSH PRN (21:15)
--- NOTE | 2017-07-27 22:29 | RADRPT ---
EXAM DATE/TIME: 07/27/2017 21:47 [facility] COMPARISON: No previous studies available for comparison. INDICATIONS : Syncope. MEDICAL HISTORY : Hypertension. Tachycardia. Asthma. Arthritis. Sciatica. Depression. SURGICAL HISTORY : Appendectomy. Cholecystectomy. Cardiac catheterization. ENCOUNTER: Initial ACUITY: 1 day PAIN SCORE: 6/10 LOCATION: Bilateral neck PEAK SYSTOLIC VELOCITIES (cm/sec): ICA/CCA RATIO: Right: 0.9 Left: 0.9 ICA: Right: 54.4 Left: 53.1 CCA: Right: 62.1 Left: 59.6 ECA: Right: 69.9 Left: 72.6 VERTEBRAL: Right: 17.4 antegrade Left: 38.7 antegrade Elevated flow velocities and ICA/CCA ratios have been found to correlate with increased degrees of vessel stenosis, calculated as percentage of diameter relative to a normal segment of distal ICA/CCA FINDINGS: RIGHT CAROTID: No significant stenosis is visualized. The waveforms are within normal limits. LEFT CAROTID: No significant stenosis is visualized. The waveforms are within normal limits. VERTEBRAL ARTERIES: Antegrade flow is seen in both vertebral arteries. MISCELLANEOUS: None. CONCLUSION: Normal examination. Caden Rojas MD on July 27, 2017 at 22:26 Board Certified Radiologist. This report was verified electronically.
[2017-07-27 23:30] VITALS: BP 113/88; PULSE 91; RESP 19; TEMP 98.1; O2SAT 92
[2017-07-28 00:40] LABS: CREATINE KINASE 58 U/L (39-308)
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
[2017-07-28] MEDS ORDERED: ACETAMINOPHEN/HYDROcodone 325 MG/7.5 MG TAB PO PRN (01:15)
[2017-07-28] MEDS: NITROGLYCERIN 0.4 MG SL 25 TABS/BTL SL PRN ×3 (01:15→10:09)
[2017-07-28 02:00] LABS: APTT (PATIENT) 27.1 SEC (24.3-30.1); PROTHROMBIN TIME - PATIENT 10.7 SEC (9.8-11.6)
[2017-07-28] MEDS: HEPARIN-D5W 25,000 U/250 ML 250 ML IV PRN ×2 (02:08→10:26)
[2017-07-28 05:13] LABS: AUTOMATED NEUTROPHIL # 4.1 TH/MM3 (1.8-7.7); BASOPHIL % 0.4 % (0.0-2.0); EOSINOPHIL # 0.5 TH/MM3 (0-0.4); EOSINOPHIL % 6.4 % (0.0-4.0); HEMATOCRIT 41.5 % (39.0-51.0); HEMO FLAGS DIFF FINAL; LYMPH % 33.5 % (9.0-44.0); LYMPHOCYTE # 2.6 TH/MM3 (1.0-4.8); MEAN CELL VOLUME 87.6 FL (80.0-100.0); MEAN CORPUSCULAR HEMOGLOBIN 30.5 PG (27.0-34.0); MEAN CORPUSCULAR HGB CONC 34.9 % (32.0-36.0); NEUT % 51.7 % (16.0-70.0); PLATELET COUNT 269 TH/MM3 (150-450); RED BLOOD COUNT 4.73 MIL/MM3 (4.50-5.90); RED CELL DISTRIBUTION WIDTH 13.7 % (11.6-17.2); WHITE BLOOD COUNT 7.9 TH/MM3 (4.0-11.0)
[2017-07-28 05:38] LABS: CREATINE KINASE 57 U/L (39-308)
[2017-07-28 05:39] LABS: BICARBONATE 27.1 MEQ/L (21.0-32.0)
[2017-07-28 05:40] LABS: POTASSIUM 4.1 MEQ/L (3.5-5.1)
[2017-07-28] MEDS ORDERED: HEPARIN SODIUM - IV 10,000 UNITS/10 ML VIAL IV PUSH PRN ×2 (07:15)
[2017-07-28 07:47] VITALS: BP 123/94; PULSE 110; RESP 22; TEMP 97.7; O2SAT 93
[2017-07-28] MEDS: METOPROLOL TARTRATE 25 MG TAB PO SCH ×2 (07:55→13:43)
[2017-07-28 08:46] LABS: APTT (PATIENT) 27.5 SEC (24.3-30.1)
[2017-07-28] MEDS ORDERED: SODIUM CHLORIDE 0.9% FLUSH 10 ML FLUSH IV FLUSH SCH (09:00)
[2017-07-28] MEDS ORDERED: ASPIRIN EC 325 MG TABEC PO SCH (09:00)
[2017-07-28] MEDS ORDERED: LISINOPRIL 10 MG TAB PO SCH (09:00)
[2017-07-28] MEDS ORDERED: ACETAMINOPHEN/HYDROcodone 325 MG/10 MG TAB PO ONE (10:00)
[2017-07-28 10:35] VITALS: PULSE 87
[2017-07-28 11:22] VITALS: RESP 18
--- NOTE | 2017-07-28 11:29 | EKG ---
Date Performed: 07/27/2017 Time Performed: 16:26:10 PTAGE: 52 years EKG: Sinus rhythm NORMAL ECG Compared to prior tracing no significant change PREVIOUS TRACING : 04/01/2014 20.37 DOCTOR: Estrada Rodriguez Interpretating Date/Time 07/28/2017 11:26:56
[2017-07-28] MEDS ORDERED: HEPARIN-NS/PF INJ 1,000 ML ONE (11:56)
[2017-07-28] MEDS ORDERED: MIDAZOLAM HCL 2 MG/2 ML VIAL ONE (12:01)
[2017-07-28] MEDS ORDERED: VERAPAMIL HCL 5 MG/2 ML VIAL ONE (12:17)
[2017-07-28] MEDS ORDERED: HEPARIN SODIUM - IV 10,000 UNITS/10 ML VIAL ONE ×2 (12:17→12:45)
[2017-07-28] MEDS ORDERED: NITROGLYCERIN INJ 5 ML ONE (12:17)
--- NOTE | 2017-07-28 12:42 | ECHRPT ---
Indication: near syncope CONCLUSIONS Normal left ventricular size. Wall thickness is normal. The left ventricular systolic function is normal with an estimated ejection fraction in the range of 60-65%. BP: 113 / 88 HR: 91 Rhythm: MEASUREMENTS (Male / Female) Normal Values Technical Quality:Fair 2D ECHO LV Diastolic Diameter PLAX 4.3 cm 4.2 - 5.9 / 3.9 - 5.3 cm LV Systolic Diameter PLAX 3.4 cm IVS Diastolic Thickness 0.8 cm 0.6 - 1.0 / 0.6 - 0.9 cm LVPW Diastolic Thickness 0.9 cm 0.6 - 1.0 / 0.6 - 0.9 cm LV Relative Wall Thickness 0.4 RV Internal Dim ED PLAX 2.2 cm LA Systolic Diameter LX 3.2 cm 3.0 - 4.0 / 2.7 - 3.8 cm DOPPLER Mitral E Point Velocity 61.2 cm/s Mitral A Point Velocity 77.0 cm/s Mitral E to A Ratio 0.8 TR Peak Velocity 239.0 cm/s TR Peak Gradient 22.8 mmHg Right Atrial Pressure 5.0 mmHg Pulmonary Artery Systolic Pressu 27.8 mmHg Right Ventricular Systolic Press 27.8 mmHg FINDINGS LEFT VENTRICLE Normal left ventricular size. Wall thickness is normal. The left ventricular systolic function is normal with an estimated ejection fraction in the range of 60-65%. RIGHT VENTRICLE Normal right ventricular size and systolic function. LEFT ATRIUM The left atrial size is normal. RIGHT ATRIUM The right atrial size is normal. ATRIAL SEPTUM Normal atrial septal thickness without atrial level shunting by limited color doppler interrogation. AORTA The aortic root and proximal ascending aorta are normal in size on limited imaging. MITRAL VALVE Structurally normal mitral valve. No mitral valve stenosis or regurgitation. AORTIC VALVE Trileaflet aortic valve. No aortic valve stenosis or regurgitation. TRICUSPID VALVE Structurally normal tricuspid valve. No tricuspid valve stenosis or regurgitation. PULMONARY VALVE No pulmonary valve regurgitation or stenosis. VESSELS The inferior vena cava is normal in size. PERICARDIUM A prominent epicardial fat pad is present. There is a small pericardial effusion present. No hemodynamically significant echocardiographic features were observed (no pre-tamponade physiology). Markus Amaya MD, FACC (Electronically Signed) Final Date:28 July 2017 12:41
--- NOTE | 2017-07-28 13:13 | CATHPROC ---
VIEO HIS Report Study Information Study Number Admission Scheduled Start Study Start [id number] Jul 28 2017 1:03AM 07/28/2017 Jul 28 2017 11:48AM [place] Service Cardiac Catheterization Admit Source Facility Department Emergency department [facility] - Family Law Paralegal Physician and Clinical Staff Initial Mack Bolivar Contracts Analyst Armaan Sullivan,MICHAELA Recorder Lawrence Elias,RT(R) Recorder Francisco Loomis RCIS(BS) Scrub Ezra Villafuerte,RT(R) Procedures Performed Procedure Location (Site) Vessel Name Coronary Angiograms LCA Left Coronary Coronary Angiograms RCA Right Coronary L Heart Cath Wire insertion Radial (right) Radial Art. Equipment Time Dust Control Engineer Description Size Mfg Part Number Used/Scraped TRANSDUCER, TRUWAVE [id number] 12:10 Repligen * Used W/STOCKCOCK *[id number] *[id number] *[id number] 12:10 [employer] PACK, CCL CUSTOM * Used *[id number] 12:10 [employer] SUPPORT, ARTERIAL ADULT 40901 *[id number] Used [id number] 12:50 [employer]TRON[employer]/AVE EBU 3.5 Z2 GUIDE CATHETER FR 6 Used *[id number] 12:43 [employer]/AVE EBU 4.0 Z2 GUIDE CATHETER FR 6 Used *[id number] BAND, RADIAL COMPRESSION TR [id number] 13:03 [employer] MEDICAL 29CM Used LARGE 29 *[id number] 12:57 [employer] MEDICAL PACK, ANGIOPLASTY * [id number] Used [id number] 12:10 [employer] MEDICAL WIRE, EXCHANGE 260CM 3MMJ 260CM Used *[id number] 12:10 NAMIC MANIFOLD, 4 PORT * Used *[id number] 12:10 [employer]COMED OMNIPAQUE, 350 MG, 150ML 150ML [id number] Used [id number] 12:10 [employer] BLANKET,WARM AIR CCL * Used *[id number] 12:52 TERUM[employer] SHEATH, FR6 TERUMO (10CM) FR 6 Used *[id number] SHEATH, FR6 TRANSRADIAL RM*[id number] 12:10 [employer]UM[employer] MEDICAL FR 6 Used SLENDER 10CM *[id number] 12:43 [employer]OL[employer] PRIME WIRE, VERRATA 185CM 185CM 97011 *[id number] Used Equipment Model, Serial, Lot Number and Expiration Data Description Model Number Serial Number Lot Number Expiration Date KRIS BASSETTCM [id number] 05-09-2020 History: Allergies Allergy Reaction No Known Allergies History: Risk Factors Family History of Hypertension Dyslipidemia Previous HI Previous Heart Failure Premature CAD Yes No No No No Prior Valve Prior PCI Prior CABG Surgery No No No Cerebrovascular Peripheral Artery Chronic Lung On Dialysis Diabetes Disease Disease Disease No No No No No History: Symptoms/Diagnosis Selection Items Chest pain History: Stress Tests Stress or Imaging Studies Performed No History: HI/CV Data Previous Cath Date 10/10/2009 History: Other Current Smoker No Labs Hgb (g/dl) Hct (%) WBC (l/cumm) Platelets (thousands) 11.60-17.00 35.00-51.00 4.00-11.00 150.00-450.00 14.0 41 7.9 269 Glucose (mg/dl) BUN (mg/dl) Creatinine (mg/dl) BUN:Creatinine (1:x) 74.00-106.00 7.00-18.00 0.50-1.30 10.00-20.00 105 16 0.8 20 Na (meq/l) K (meq/l) 136.00-145.00 3.50-5.10 137 4.1 INR (PTT:PT) 0.90-1.10 1 Troponin I (ng/ml) CPK (u/l) CPK-MB (ng/ML) 0.02-0.05 26.00-308.00 0.50-3.60 0.02 76 Not Drawn Medication Medication Total Dose (Bolus/Oral) Medication Total Dosage/Unit 1% XYLOCAINE 3 mL FENTANYL 50 mcg HEPARIN 7300 units OXYGEN 2 l/min RADIAL COCKTAIL 5 mL (Bolus) VERSED 1 mg Medications (Bolus/Oral) Medication Time Given Dosage/Unit Administered By Reason 07/28/2017 12:15:00 OXYGEN 2 l/min Armaan Sullivan PM 2 l/min OXYGEN given in lab by Armaan Sullivan, MICHAELA via Nasal. Ordered by Mack Cunningham 07/28/2017 12:22:21 VERSED 1 mg Armaan Sullivan PM 1 mg VERSED given in lab by Armaan Sullivan RN in Left Antecubital via Peripheral IV. Ordered by Mack Montemayor 07/28/2017 12:22:41 FENTANYL 50 mcg Armaan Sullivan PM 50 mcg FENTANYL given in lab by Armaan Sullivan RN in Right Antecubital via Peripheral IV. Ordered by Mack Cunningham 07/28/2017 12:23:13 1% XYLOCAINE 3 mL Mack Cunningham 3 mL 1% XYLOCAINE given in lab by Mack Cunningham in Right Radial via Subcutaneous. Ordered by Mack Terry 07/28/2017 12:32:17 Ntg 200mcg Verapamil 2.5mg Heparin RADIAL COCKTAIL 5 mL (Bolus) Armaan Sullivan PM 2500U 5 mL (Bolus) RADIAL COCKTAIL given in lab by Armaan Sullivan RN in Right Radial via Radial. Using [So lution Name]. Ordered by Mack Cunningham Reason: Ntg 200mcg Verapamil 2.5mg Heparin 4900U. 07/28/2017 12:45:22 HEPARIN 7300 units Armaan Sullivan PM 7300 units HEPARIN given in lab by Armaan Sullivan RN in Right Antecubital via Peripheral IV. Ordered by Mack Cunningham Medication (Drip) Medication Time Given Dosage/Unit Concentration/Unit Diluent (ml) Solution 07/28/2017 12:02:51 IV Solutions 0 mL (IV) 500 NaCl .9 PM Patient arrived on IV Solutions in Right Antecubital via Peripheral IV. Pump/Drip Flow = 20 ml/hr usi ng NaCl .9. Ordered by Mack Cunningham Initial Case Assessment Cardiovascular HR Rhythm NIBP Chest Pain 83 nsr 139/106 0 Edema Present Skin color Skin None Normal Warm Dry Circulatory - Right Pulses Dorsalis Pedis Femoral Radial 1 1 1 Scale (0,1,2,3,4,d) Circulatory - Left Pulses Dorsalis Pedis Femoral Radial 1 1 Scale (0,1,2,3,4,d) Neurological State Oriented to time-place- Alert Moves all extremities person Respiration - General Respiration Rate SpO2 (%) (B/min) 15 95 Final Case Assessment Cardiovascular HR Rhythm NIBP Chest Pain 83 nsr 139/106 0 Edema Present Skin color Skin None Normal Warm Dry Circulatory - Right Pulses Dorsalis Pedis Femoral Radial 1 1 1 Scale (0,1,2,3,4,d) Circulatory - Left Pulses Dorsalis Pedis Femoral Radial 1 1 Scale (0,1,2,3,4,d) Neurological State Oriented to time-place- Alert Moves all extremities person Respiration - General Respiration Rate SpO2 (%) (B/min) 15 95 Chronological Log Time Study Chronological Log 11:40:25 Patient arrived via Bed. 11:42:48 Patient Name, D.O.B, / Armband Verified By R.N. 11:43:57 Pre-op and post- op instructions given; patient acknowledges understanding of instructions. 11:44:30 Patient has been NPO for More than 6Hrs. 11:50:18 Patient Warmer Placed on the Table. 11:53:17 Skin Breakdown- bilateral groin rash. 11:53:36 Patient Warmer Placed on the Table. Vitals capture started with the following parameters, Patient=Adult, Interval=5 min, Initial Pr stchvr=748 mmHg, 11:54:41 Deflation Rate=5 mmHg, Cuff placed on Right Arm 11:54:44 Reference ECG taken Vitals capture started with the following parameters, Patient=Adult, Interval=5 min, Initial Pr hrluzd=748 mmHg, 11:59:51 Deflation Rate=5 mmHg, Cuff placed on Right Arm 12:00:27 HR=82 bpm, CUBC=843/105 mmhg, SpO2=96.0 %, Resp=16 B/min, Pain=0, Tuyet=10, Wilkes=2 12:02:40 A # 20 IV was noted in the Antecubital (left). Grade = 0 Patient arrived on IV Solutions in Right Antecubital via Peripheral IV. Pump/Drip Flow = 20 ml/ hr using NaCl .9. Ordered 12:02:51 by Mack Cunningham 12:03:05 History and physical on the chart or being dictated. 12:05:02 Right Radial and groin(s) prepped with 2% chlorhexidine, and draped after a 3 min. waiting time. 12:05:26 Allens test performed on the right radial and ulnar artery. POSITIVE. 12:05:26 HR=84 bpm, UVMJ=426/102 mmhg, SpO2=93.0 %, Resp=17 B/min, Pain=0, Tuyet=10, Wilkes=2 12:07:20 MD paged 12:10:25 HR=81 bpm, KPZL=647/106 mmhg, SpO2=94.0 %, Resp=17 B/min, Pain=0, Tuyet=10, Wilkes=2 12:10:25 Pressure channel 1 zeroed. Assessment: Initial Case, HR=83 BPM, Rhythm=nsr, IKHY=185/106 mmhg, Chest Pain=0, Edema=None, Color=Normal, Skin = Warm, Dry Right Pulses: Hai Ped=1, Femoral=1, Radial=1 12:10:41 Left Pulses: Hai Ped=1, Femoral=1 Neurological: State=Alert, Ox3, TIERNEY Respiration: Resp=15 B/min, SpO2=95 % 12:15:00 2 l/min OXYGEN given in lab by Armaan Sullivan, RN via Nasal. Ordered by Mack Cunningham 12:15:26 HR=87 bpm, IMBM=615/95 mmhg, SpO2=92.0 %, Resp=16 B/min, Pain=0, Tuyet=10, Wilkes=2 12:15:55 MD arrived. 12:15:59 Contrast Scanned 12:15:59 Immediate Presedation assesment performed by physician. 12:20:28 HR=84 bpm, WDXS=285/98 mmhg, SpO2=92.0 %, Resp=19 B/min, Pain=0, Tuyet=10, Wilkes=2 Time Out. Correct patient, correct procedure, correct physician, power injector not loaded with contrast with surgical 12:21:29 team present. Time Out Concurred by MD and individual staff in procedure. 12:22:20 Case Start 12:22:21 1 mg VERSED given in lab by Armaan Sullivan, RN in Left Antecubital via Peripheral IV. Order ed by Mack Cunningham 50 mcg FENTANYL given in lab by Armaan Sullivan, MICHAELA in Right Antecubital via Peripheral IV. Orde red by Mack Cunningham 12:22:41 G. 12:23:09 Verbal Stimulation=2 Physical Stimulation=2 Airway=2 Respiration=2 TOTAL=8. (0=absent, 1=li mited, 2=present) 3 mL 1% XYLOCAINE given in lab by Mack Cunningham in Right Radial via Subcutaneous. Ordered by Octavio, 12:23:13 Mack Leavitt 12:25:27 HR=84 bpm, IKDR=839/102 mmhg, SpO2=95 %, Resp=16 B/min, Pain=0, Tuyet=10, Wilkes=2 A SHEATH, FR6 TRANSRADIAL SLENDER 10CM FR 6 was advanced into the Radial (right) using the Perc utaneous 12:30:20 technique. 12:30:28 HR=84 bpm, SFLQ=252/105 mmhg, SpO2=95 %, Resp=16 B/min, Pain=0, Tuyet=10, Wilkes=2 12:30:34 Access site was Right Radial Artery. A SHEATH, FR6 TRANSRADIAL SLENDER 10CM FR 6 was advanced into the Radial (right) using the Perc utaneous 12:31:02 technique. 5 mL (Bolus) RADIAL COCKTAIL given in lab by Armaan Sullivan RN in Right Radial via Radial. Usi ng [Solution Name]. 12:32:17 Ordered by Mack Cunningham Reason: Ntg 200mcg Verapamil 2.5mg Heparin 4900U. A JR 4.0 INFINITI CATHETER FR 5 was advanced over a wire. OMNIPAQUE, 350 MG, 150ML 150ML was us ed for 12:33:06 injections. Recorded Pressure: LV, HR=92, Condition=Condition 1 12:35:13 (Left Ventricle) LV 124/0/11 Recorded Pressure: LV, Ao, HR=93, Condition=Condition 1 12:35:25 (Left Ventricle) LV 115/-2/9, (Aorta) Ao 114/88/99 12:35:33 HR=90 bpm, EPVY=596/84 mmhg, SpO2=90.0 %, Resp=16 B/min, Pain=0, Tuyet=10, Wilkes=2 12:35:57 The RCA was injected and visualized at various angles. OMNIPAQUE, 350 MG, 150ML 150ML used . Recorded Pressure: Ao, HR=90, Condition=Condition 1 12:36:08 (Aorta) Ao 104/88/95 After removing the current catheter a JL 3.5 INFINITI CATHETER FR 5 was advanced over a WIRE, E XCHANGE 260CM 12:37:00 3MMJ 260CM. 12:40:23 The LCA was injected and visualized at various angles. OMNIPAQUE, 350 MG, 150ML 150ML used . 12:40:28 HR=89 bpm, BGKS=703/84 mmhg, SpO2=90.0 %, Resp=16 B/min, Pain=0, Tuyet=10, Wilkes=2 7300 units HEPARIN given in lab by Armaan Sullivan RN in Right Antecubital via Peripheral IV. O rdered by Octavio, 12:45:22 Mack Leavitt 12:45:29 HR=90 bpm, JXWZ=488/85 mmhg, SpO2=90 %, Resp=17 B/min, Pain=0, Tuyet=10, Wilkes=2 After removing the current catheter a EBU 4.0 Z2 GUIDE CATHETER FR 6 was advanced over a WIRE, EXCHANGE 12:46:35 260CM 3MMJ 260CM. 12:47:16 Pressure channel 1 zeroed. 12:47:46 Pressure channel 1 zeroed. 12:48:23 Pressure channel 1 zeroed. After removing the current catheter a EBU 3.5 Z2 GUIDE CATHETER FR 6 was advanced over a WIRE, EXCHANGE 12:50:04 260CM 3MMJ 260CM. 12:50:30 HR=87 bpm, DQOW=496/86 mmhg, SpO2=91.0 %, Resp=18 B/min, Pain=0, Tuyet=10, Wilkes=2 12:51:40 Catheter was removed A EBU 3.5 Z2 GUIDE CATHETER FR 6 was advanced over a wire. OMNIPAQUE, 350 MG, 150ML 150ML was u sed for 12:53:28 injections. 12:55:29 HR=87 bpm, KFGC=847/85 mmhg, SpO2=92.0 %, Resp=18 B/min, Pain=0, Tuyet=10, Wilkes=2 12:56:19 A PRIME WIRE, VERRATA 185CM 185CM was inserted via Radial (right). 12:58:52 Interventional wire has crossed the lesion 13:00:16 Flow Wire was was placed in the LAD Mid. The FFR measures ~FFR~ percent. The IFR measures 9 4 Percent. 13:00:30 HR=86 bpm, ZLWE=936/87 mmhg, SpO2=90.0 %, Resp=18 B/min, Pain=0, Tuyet=10, Wilkes=2 13:02:10 Wire removed 13:02:11 Catheter was removed Radial Compression Device Used. 8 mLs of air placed in BAND, RADIAL COMPRESSION TR LARGE 29 29C M. Affected 13:03:17 hand 95 % O2 saturation. 13:04:33 Case End Assessment: Final Case, HR=83 BPM, Rhythm=nsr, TVUV=759/106 mmhg, Chest Pain=0, Edema=None, Col or=Normal, Skin = Warm, Dry Right Pulses: Hai Ped=1, Femoral=1, Radial=1 13:04:37 Left Pulses: Hai Ped=1, Femoral=1 Neurological: State=Alert, Ox3, TIERNEY Respiration: Resp=15 B/min, SpO2=95 % 13:04:46 Catheter(s) removed without difficulty 13:04:48 Sterile dressing applied to site 13:04:48 No case complications noted. 13:04:49 Cine recording checked. 13:04:51 Bedside Report will be given. 13:04:52 Contrast Scanned 13:04:54 Verbal Stimulation=2 Physical Stimulation=2 Airway=2 Respiration=2 TOTAL=8. (0=absent, 1=li mited, 2=present) 13:05:07 A Left Heart Cath was performed. 13:05:31 HR=89 bpm, WQJI=238/95 mmhg, SpO2=91.0 %, Resp=16 B/min, Pain=0, Tuyet=10, Wilkes=2 13:10:45 [facility] - Contrast Media Used In Study Contrast Total Opened (mL) Total Used (mL) Total Wasted (mL) Omnipaque 90 90 0 End Study - Maximum Contrast Load Max Contrast Load (mL) 762.5 End Study - Radiation Exposure Fluoro Time (minutes) 8.7 End Study - Patient Disposition Complications Transferred To Interventional Outcome No Family Law Paralegal Holding No attempt made
[2017-07-28] MEDS ORDERED: MISC INFORMATION XX ONE (13:30)
[2017-07-28] MEDS: ACETAMINOPHEN/HYDROcodone 325 MG/10 MG TAB PO PRN ×2 (13:42→17:48)
[2017-07-28] MEDS ORDERED: IOHEXOL 350 MG/ML 100 ML BTL (for Cath Lab) OTHER ONE (14:12)
[2017-07-28] MEDS ORDERED: ATOR20TA15 PO (14:18)
[2017-07-28] MEDS ORDERED: ASPI81CH25 CHEW (14:18)
[2017-07-28] MEDS ORDERED: NITR0.4S SL (18:40)
[2017-07-28] MEDS ORDERED: AMITRIPTYLINE HCL 75 MG TAB PO SCH (21:00)
[2017-07-28] MEDS ORDERED: ATORVASTATIN 40 MG TAB PO SCH (21:00)
--- NOTE | 2017-07-28 21:47 | EKG ---
Date Performed: 07/28/2017 Time Performed: 00:27:04 PTAGE: 52 years EKG: Sinus rhythm NORMAL ECG PREVIOUS TRACING : 07/27/2017 16.26 Compared to prior tracing no significant change DOCTOR: Estrada Rodriguez Interpretating Date/Time 07/28/2017 21:46:09
--- NOTE | 2017-07-28 23:31 | MB ---
cc: MACK BLOOM DO DATE OF CONSULTATION July 28, 2017 REASON FOR CONSULTATION Chest pain. HISTORY OF PRESENT ILLNESS Germán Velasquez is a pleasant 52-year-old male who presented to [facility] on July 28, 2017 due to chest pain. He states that he was up walking around doing yard work and he started noticing left-sided chest pain. It appears to be underneath his left breast and go up through his axilla. At times is sharp and stabbing but at other times it is more of a soreness or ache. Not reproducible with movement of his arms or pressing on the area. It is not pleuritic in nature. He also had been short of breath. He saw his primary care physician who told him he should come to the hospital. While here he has had no further episodes. He did state that he had some nitroglycerin when he arrived and this helped his chest pain. He has had a few episodes of what looks like sinus tachycardia with a 100-110. In seeing him he is currently hemodynamically stable without chest pain or shortness of breath. PAST MEDICAL HISTORY 1. Kidney stone. 2. Hypertension. 3. Tachycardia of unknown cause. 4. Chronic left face numbness. PAST SURGICAL HISTORY 1. Coronary angiogram (2009) with a possible 20% stenosis of the left main ostium, otherwise no significant disease. 2. Nephrostomy. 3. Back surgery. 4. Appendectomy. 5. Cholecystectomy. ALLERGIES NO KNOWN DRUG ALLERGIES. MEDICATIONS 1. Metoprolol 25 milligrams t.i.d. 2. Lisinopril 10 milligrams b.i.d. 3. Aspirin 81 milligrams daily. 4. [place] 7.5/325 every 6 hours as needed for pain. 5. Amitriptyline 150 milligrams every night. 6. Requip 1 milligram every night. FAMILY HISTORY Father had a massive heart attack at the age of 55. Paternal uncle at the age of __ due to massive NC. Mother had heart issues. Denies sudden cardiac within the family. SOCIAL HISTORY The patient never smoked or had alcohol or drug abuse. REVIEW OF SYSTEMS 14-systems were reviewed including osteopathic, pertinent positives and negatives as above, otherwise negative. PHYSICAL EXAMINATION VITAL SIGNS: Temperature 97.7, heart rate 90, blood pressure 129/94, respirations 20, pulse ox 93% on room air. GENERAL: In general, the patient appears well in no acute distress. Alert, awake and oriented x3. HEENT: Extraocular muscles intact. Mucous membranes moist. NECK: Supple. No JVD at 45 degrees. No carotid bruits heard bilaterally. Carotid upstroke is brisk in nature. HEART: Heart is regular rate and rhythm. Positive first and second heart sounds with no noted murmurs, gallops or rubs. LUNGS: Clear to auscultation bilaterally. No wheezes, rales or rhonchi. ABDOMEN: Soft, nontender, nondistended. No organomegaly noted. EXTREMITIES: Show no clubbing, cyanosis or edema. Femoral and distal pulses intact bilaterally. NEUROLOGICALLY: No focal deficits. SKIN: Warm, dry and intact. OSTEOPATHIC: No kyphoscoliosis, lordosis or paraspinal tender points. LABORATORY FINDINGS Hemoglobin 14.5, hematocrit 41.5, platelets 269. Troponin negative x3. Potassium 4.1, BUN 16, creatinine 0.84. CARDIOLOGY STUDIES Electrocardiogram (July 28, 2017 at 04:58) sinus rhythm with sinus arrhythmia, no acute ST-T wave changes. IMPRESSION 1. Chest pain concerning for coronary insufficiency. 2. History of coronary artery disease. 3. Hypertension. 4. Unspecified tachycardia. RECOMMENDATIONS 1. Mr. Velasquez's chest pain is concerning for coronary artery disease and with his history of possible left main disease I feel that he should undergo cardiac catheterization to rule out significant lesions. 2. Risks, benefits and alternatives were explained to him and he consents as such. 3. Overall, he does appear to have episodes of tachycardia which may be inappropriate sinus tachycardia which possibly could correlate with his symptoms. He should be evaluated outpatient either in my office or with his primary care physician and he should undergo Holter monitor upon discharge. 4. Further recommendations will be made based on hospital course. Thank you for allowing me to see Germán Velasquez. If there are any questions please do not hesitate to call. Mack Bloom DO VGP/EO /10:46 PM /11:09 PM
--- NOTE | 2017-07-28 23:39 | MA ---
cc: MACK BLOOM DO DATE OF PROCEDURE July 28, 2017 PROCEDURE Left heart catheterization, coronary angiogram, IFR LAD, moderate sedation 40 minutes. PREPROCEDURE DIAGNOSIS Unstable angina, history of coronary artery disease. POSTPROCEDURE DIAGNOSIS Mild coronary artery disease. MEDICATIONS 1. Versed 1 milligram. 2. Fentanyl 50 micrograms. 3. Heparin 12,200 units. 4. Verapamil 2.5 milligrams. 5. Nitro 200 micrograms. CONTRAST USED 90 cc. FLUOROSCOPY 0.7 minutes. MODERATE SEDATION 40 minutes. ESTIMATED BLOOD LOSS 10 cc. PROCEDURAL SUMMARY Germán Velasquez is a pleasant 52-year-old male who presented with chest pain concerning for coronary insufficiency. Because of this he was recommended cardiac catheterization. Risks, benefits and alternatives were explained to him and he consented as such. He was brought to lab and prepped in the usual sterile fashion. Right radial artery was accessed using a modified Seldinger technique and placement of a 5/6 Iranian sheath. This was easily aspirated and flushed. JR-4 was advanced over a J-wire to the ascending aorta and across the aortic valve for measurement of left ventricular pressure. This was pulled back across the aortic valve showing no significant gradient of aortic stenosis. JR-4 was used for selective angiography of the right coronary artery. This was exchanged out for a JL 3.5 which was used for selective angiography of the left coronary artery. As there was concern for mid LAD disease I felt that this needed to be further investigated. He was given additional heparin as an anticoagulant. An EBU 4 guide was attempted to engage the left main but unable to and so this was exchanged out for an EBU 3.5 guide. [place] wire was placed in the distal LAD. IFR was 0.94 showing nonsignificant stenosis. Wire was removed and final angiography shows no disruption of coronary system. EBU catheter was removed over a J-wire. Radial arteriotomy site was covered with a radial band. The patient left the mine laborer cardiovascularly stable. FINDINGS Left main: Large vessel with adequate reflux and no significant disease. LAD: Large size vessel with a 50% lesion in the midportion at the takeoff of the first major diagonal. Otherwise, no significant disease. There is one diagonal with no significant disease. Left circumflex: Large vessel with mild luminal irregularities throughout the midportion. It gives off three major obtuse marginals with mild tortuosity but no significant disease. RCA: Large size vessel with an anterior takeoff. Mild luminal irregularities throughout the proximal and midportion but otherwise no significant disease. LVEDP: 9. IMPRESSION 1. Chest pain concerning for coronary insufficiency. 2. Cardiac catheterization showing mild coronary artery disease. RECOMMENDATIONS 1. Mr. Velasquez appears to have normal coronaries with mild coronary artery disease at most. 2. We will check an echo to look at his overall left ventricular function, cardiac structure and possible valvulopathies. 3. Overall, he does have some slow flow through his coronaries and this may be due based on the size of his coronaries versus possible diastolic dysfunction. I recommend alf blood pressure control. 4. As he does have mild coronary artery disease he will be recommended aspirin and statin therapy. 5. If echo shows no significant complications then he may be discharged from a cardiovascular standpoint. 6. He does have episodes of tachycardia which appear to be sinus tachycardia, although this should be further investigated. I asked that he follow up with myself or his primary care physician for consideration of a Holter monitor. Thank you for allowing me to see Germán Velasquez. If there are any questions please do not hesitate to call. Mack Bloom DO VGP/EO /10:53 PM /11:25 PM
[2017-07-29] MEDS ORDERED: ASPIRIN 81 MG CHEW TAB CHEW SCH (09:00)
--- NOTE | 2017-07-29 22:03 | EKG ---
Date Performed: 07/28/2017 Time Performed: 04:58:05 PTAGE: 52 years EKG: Sinus rhythm WITH SINUS ARRHYTHMIA NORMAL ECG PREVIOUS TRACING : 07/28/2017 00.27 Compared to prior tracing no significant change DOCTOR: Jg Correa Interpretating Date/Time 07/29/2017 22:02:13
== END 2017-07-28 19:30 | disposition home or self-care (01) | DRG 287 ==
LOC: NEPC 16:03 → NEDA 21:33 → NEPGCP 22:15 → OBSVTOIN 07-28 01:03 → HCIS 07-28 12:26
PROVIDERS: ADMIT Hospitalist; ATTEND Hospitalist
PROC: B2111ZZ Fluoroscopy of Multiple Coronary Arteries using Low Osmolar Contrast (ICD-10-PCS; 2017-07-28)
PROC: 4A033BC Measurement of Arterial Pressure, Coronary, Percutaneous Approach (ICD-10-PCS; 2017-07-28)
PROC: 4A023N7 Measurement of Cardiac Sampling and Pressure, Left Heart, Percutaneous Approach (ICD-10-PCS; principal; 2017-07-28 10:45)
DX: I25.110 Atherosclerotic heart disease of native coronary artery with unstable angina pectoris (principal); I10 Essential (primary) hypertension; F32.9 Major depressive disorder, single episode, unspecified; J45.909 Unspecified asthma, uncomplicated; R20.0 Anesthesia of skin; Z79.82 Long term (current) use of aspirin; Z87.442 Personal history of urinary calculi; E66.9 Obesity, unspecified; Z68.33 Body mass index [BMI] 33.0-33.9, adult
CPT/HCPCS: 71020; 71275; 80048; 82550; 84484; 85025; 85610; 85730; 93005; 93306; 93458; 93571; 93880; C1769; C1887; C1893; J1644; J1885; J2250; J3010; J7030; Q9967

== ENCOUNTER 2017-12-14 08:40 | Emergency (ER) | payer OTHER ==
[~2017-12-14] VITALS: Ht 190.5 cm; Wt 79.0 kg
[~2017-12-14 08:40] MED LIST changes: +ASPI81CH25 CHEW; +ATOR20TA15 PO; +METO25TA3 PO; -METO25TA6 PO; +NITR0.4S SL
[2017-12-14 09:02] VITALS: BP_SYST 136; PULSE 99; RESP 16; TEMP 98.8; O2SAT 96
[2017-12-14] MEDS ORDERED: MECL12.574 PO (09:25)
[2017-12-14] MEDS ORDERED: DILT240C44 PO (09:26)
[2017-12-14] MEDS ORDERED: MONT10TA4 PO (09:26)
[2017-12-14] MEDS ORDERED: CYMB60CA PO (09:27)
[2017-12-14] MEDS ORDERED: BACL10TA PO (09:27)
[2017-12-14] MEDS ORDERED: KETOROLAC TROMETHAMINE 60 MG/2 ML (IM) VIAL IM ONE (09:45)
[2017-12-14] MEDS ORDERED: ORPHENADRINE INJ 60 MG/2 ML AMP IM ONE (09:45)
--- NOTE | 2017-12-14 09:47 | PD ---
HPI Chief Complaint: Injury Time Seen by Provider: 09:23 Travel History International Travel<30 days: No Contact w/Intl Traveler<30days: No Traveled to known affect area: No History of Present Illness HPI Patient comes to the emergency department complaining of left shoulder and low back pain ongoing for 2 weeks after a syncopal episode at home. Please states he has seen his primary care doctor and has an MRI scheduled for this Tuesday of her shoulder, head, and low back, but pain is not being well controlled with his hydrocodone at home. Patient reports he has tried lidocaine patches as well as Biofreeze and baclofen for this with little/no improvement of symptoms. Patient describes pain in his shoulder has a sore achiness in his low back as a stiffness. Pain is worse with certain movement. Patient denies any fevers, IV drug use, loss change in bowel or bladder, new numbness or tingling anywhere , or weakness. Patient reports that his low back pain is starting to go into his right hip. Patient reports he does have chronic pain and sees pain management but pain is gone worse since the syncopal episode. Denies any chest pain, shortness of breath, headache, or other known injuries. 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) Psychiatric: No Reproductive: No Respiratory: Yes (ASTHMA ) Immunizations Current: Yes Myocardial Infarction: No Past Surgical History Abdominal Surgery: Yes (APPY) Appendectomy: Yes Cholecystectomy: Yes Coronary Artery Bypass Graft: No Genitourinary Surgery: Yes (KIDNEY STONE REMOVAL) Other Surgery: Yes Social History Alcohol Use: No Tobacco Use: No Substance Use: No Allergies-Medications (Allergen,Severity, Reaction): Coded Allergies: No Known Allergies (Verified Adverse Reaction, Unknown, 12/14/17) Reported Meds & Prescriptions Reported Meds & Active Scripts Active Orphenadrine CR (Orphenadrine Citrate) 100 Mg Tab 100 Mg PO Q12HR PRN Diclofenac Sodium DR (Diclofenac Sodium) 75 Mg Tabdr 75 Mg PO Q12HR PRN Nitrostat SL (Nitroglycerin) 0.4 Mg Subl 0.4 Mg SL Q5M PRN Atorvastatin (Atorvastatin Calcium) 20 Mg Tab 20 Mg PO HS Aspirin Low Strength (Aspirin) 81 Mg Chew 81 Mg CHEW DAILY Reported Baclofen 10 Mg Tab 10 Mg PO Q8HR Cymbalta DR (Duloxetine HCl) 60 Mg Capdr 60 Mg PO DAILY Montelukast (Montelukast Sodium) 10 Mg Tab 10 Mg PO HS Diltiazem CD 24 HR 240 Mg Caper 240 Mg PO DAILY Meclizine (Meclizine HCl) 12.5 Mg Tab 12.5 Mg PO DIRECTED PRN Amitriptyline (Amitriptyline HCl) 150 Mg Tab 150 Mg PO HS [address] (Hydrocodone-Acetaminophen) 7.5-325 mg Tab 1 Tab PO Q6HR PRN Requip (Ropinirole) 1 Mg Tab 1 Mg PO HS Lisinopril 10 Mg Tab 10 Mg PO BID Review of Systems Except as stated in HPI: all other systems reviewed are Neg Physical Exam Narrative GENERAL: Well-developed, overly nourished, in no acute distress, and non-ill appearing. SKIN: Focused skin assessment warm and dry. HEAD: Atraumatic. Normocephalic. EYES: Pupils equal and round. EOMI. No scleral icterus. No injection or drainage. ENT: No nasal bleeding or discharge. Mucous membranes pink and moist. NECK: Trachea midline. Supple. No nuclear rigidity. CARDIOVASCULAR: Radial and dorsal pulses 2+, intact, equal bilaterally. Capillary refill less than 2 seconds. RESPIRATORY: No accessory muscle use. No respiratory distress. MUSCULOSKELETAL: No obvious deformities. No clubbing. No cyanosis. No edema. Decreased range of motion left shoulder secondary to pain. Shoulder: Sensation equal BL deltoid muscles. Pulses equal BL distal to injury. Capillary refill less than 2 seconds distal to injury and equal BL. FROM distal to injury and equal BL. Strength distal to injury equal BL. NV intact distal to injury equal BL. Flexion and extension of thumb equal BL. Equal strength and movement with abduction/adductions of BL fingers. [employer] strength equal BL. No tenderness or crepitus or midline of the lumbar spine. Patient reports point tenderness lateral lateral lumbar muscles. Straight leg test positive on the left. NEUROLOGICAL: Awake and alert. No obvious cranial nerve deficits. Motor grossly within normal limits. Normal speech. PSYCHIATRIC: Appropriate mood and affect; insight and judgment normal. Data Data Last Documented VS Vital Signs Date Time Temp Pulse Resp B/P (MAP) Pulse Ox O2 Delivery O2 Flow Rate FiO2 12/14/17 09:02 98.8 99 16 136/ 96 Orders Orders Ketorolac Inj (Toradol Inj) (12/14/17 09:45) Orphenadrine Inj (Norflex Inj) (12/14/17 09:45) Shoulder, Complete (>2vws) (12/14/17 ) Spine, Lumbar - Ltd (Ap & Lat) (12/14/17 ) Ed Discharge Order (12/14/17 11:05) Dexamethasone Inj (Decadron Inj) (12/14/17 11:30) [place] Medical Decision Making Medical Screen Exam Complete: Yes Emergency Medical Condition: Yes Interpretation(s) Last Impressions Shoulder X-Ray 12/14/17 0000 Signed Impressions: Service Date/Time: Thursday, December 14, 2017 09:53 - CONCLUSION: Negative for fracture or dislocation. Follow up in 7-10 days is suggested if symptoms persist. Rakesh Hays MD FACR Lumbar Spine X-Ray 12/14/17 0000 Signed Impressions: Service Date/Time: Thursday, December 14, 2017 09:58 - CONCLUSION: Minimal degenerative disc disease. Negative for acute compression. MRI would offer more information. Rakesh Hays MD FACR Differential Diagnosis Fracture, strain, rotator cuff tear, dislocation, sciatica Narrative Course The patient presented complaining of back pain. There was history of preceding trauma. X-rays were obtained and no obvious fracture or acute disease was noted at this time. The patient has no new neurological complaints. The patient has been behaving normally and no notable altered mental status. Tio score of 15. The patients neurological exam is normal with normal motor and sensory for patient. There is no saddle paresthesias reported and no bowel or bladder incontinence or retention. . The patients evaluation was consistent with soft tissue injury and not consistent with bony injury. Clinical suspicion, plan of care and management was discussed with the patient. The patient was instructed to follow up with their health care provider. The patient was also instructed to return if the pain worsened, changed, or developed weakness or bowel or bladder trouble. The patient agreed with plan. There was no evidence to support genitourinary etiology. There is also no evidence to suggest vascular pathology such as AAA dissection. No fevers or other evidence to suspect infectious processes, abscess etc. There is no clinical evidence for fracture. There is no clinical evidence to suspect bony injury by exam. Radiographic examination revealed no fracture seen at this time. No obvious ligamental injury or internal derangement is noted at this time. The patient was informed rotator cuff injury or other soft tissue injury cannot be entirely excluded and to maintain his MRI scheduled for this Tuesday. The distal extremity appears neurovascularly intact, without evidence of neurovascular injury nor compartment syndrome. Tendon exam also was intact. The patient was discharged and given warnings for vascular compromise. The patient is to follow up with his primary care, pain management, and/or orthopedics. The patient agrees with plan. Patient in no obvious distress upon re-evaluation. All pertinent Radiology result(s) discussed with patient. Patient was asked if they wanted to speak to my attending, which the patient did not wish to do at this time. Any questions/ concerns in reference to patient diagnosis/condition discussed and clarified prior to patient's discharge. Reinforced sheer importance of close follow up with patient's primary physician or primary care clinic, pain management, and/ or orthopedic. Instructed patient to return to ED immediately, if symptoms return/worsen. Patient showed understanding of above instructions. Further instructions and recommendations were detailed in discharge paperwork. Patient ambulated without difficulty out of ED at discharge. Diagnosis Primary Impression: Left shoulder pain Qualified Codes: M25.512 - Pain in left shoulder Additional Impression: Low back pain Qualified Codes: M54.5 - Low back pain Referrals: Lawrence Larios MD Patient Instructions: Back Pain (ED), General Instructions, Shoulder Pain (ED) Additional Instructions: Follow-up with your primary care physician, pain management doctor, and/or orthopedic in 3-5 days for reevaluation. Take all medication as prescribed. Do not take your baclofen while taking muscle relaxer prescribed here today. Obtain your MRIs as scheduled. Return to the emergency department if symptoms get worse. Med/Other Pt SpecificInfo: Prescription(s) given Scripts Orphenadrine ER 12 HR (Orphenadrine CR) 100 Mg Tab 100 MG PO Q12HR Y for MUSCLE PAIN, #10 TAB 0 Refills Prov: Mynor Rich MD 12/14/[address] (Diclofenac Sodium DR) 75 Mg Tabdr 75 MG PO Q12HR Y for PAIN SCALE 1 TO 10, #14 TAB 0 Refills Prov: Mynor Rich MD 12/14/17 Disposition: 01 DISCHARGE HOME Condition: Stable Tex Doyle Dec 14, 2017 09:47
--- NOTE | 2017-12-14 10:13 | RADRPT ---
EXAM DATE/TIME: 12/14/2017 09:53 [facility] COMPARISON: No previous studies available for comparison. INDICATIONS : Left shoulder pain after fall two weeks ago. MEDICAL HISTORY : Arthritis. Sciatica. SURGICAL HISTORY : Appendectomy. Cholecystectomy. ENCOUNTER: Initial ACUITY: 2 weeks PAIN SCORE: 10/10 LOCATION: Left shoulder. FINDINGS: Multiple view examination of the left shoulder demonstrates no evidence of fracture or dislocation. The glenohumeral and acromioclavicular joints are maintained. There is normal range of motion betwee n internal and external rotation. Bony mineralization is normal. CONCLUSION: Negative for fracture or dislocation. Follow up in 7-10 days is suggested if symptoms persist. Rakesh Hays MD FACR on December 14, 2017 at 10:11 Board Certified Radiologist. This report was verified electronically.
--- NOTE | 2017-12-14 10:14 | RADRPT ---
EXAM DATE/TIME: 12/14/2017 09:58 [facility] COMPARISON: No previous studies available for comparison. INDICATIONS : Lower back pain after fall two weeks ago. MEDICAL HISTORY : Hypertension. Arthritis. Sciatica. SURGICAL HISTORY : Appendectomy. Cholecystectomy. ENCOUNTER: Initial ACUITY: 2 weeks PAIN SCORE: 10/10 LOCATION: Lower back. FINDINGS: There is loss of disc space height at L5-S1. There is minimal loss of disc space height at L3-4. Th ere mild degenerative changes of the facets. CONCLUSION: Minimal degenerative disc disease. Negative for acute compression. MRI would offer more information . Rakesh Hays MD FACR on December 14, 2017 at 10:12 Board Certified Radiologist. This report was verified electronically.
[2017-12-14] MEDS ORDERED: ORPH100T2 PO (11:04)
[2017-12-14] MEDS ORDERED: DICL75TA PO (11:04)
[2017-12-14] MEDS ORDERED: DEXAMETHASONE SOD PHOS 4 MG/ML VIAL IM ONE (11:30)
== END 2017-12-14 11:54 | disposition home or self-care (01) ==
LOC: NEPK 08:40
DX: M25.512 Pain in left shoulder (principal); M54.5 Low back pain; J45.909 Unspecified asthma, uncomplicated; M19.90 Unspecified osteoarthritis, unspecified site; I10 Essential (primary) hypertension; F32.9 Major depressive disorder, single episode, unspecified
CPT/HCPCS: 72100; 73030; 96374; 96375; 99284; J1100; J1885; J2360